=== PATIENT | female | born 1965 | race Caucasian/White ===

== ENCOUNTER 2017-09-29 10:31 | Day surgery (SDC) | END 2017-09-29 12:54 | disposition home or self-care (01) ==

== ENCOUNTER 2018-10-05 18:41 | Emergency (ER) | payer OTHER ==
[~2018-10-05] VITALS: Ht 147.3 cm; Wt 54.5 kg
[~2018-10-05 18:41] MED LIST: ALEN70TA5 PO; CALC1TAB79 PO; EMTR1TAB17 PO; HIV MEDS; SUMA50TA3 PO; TRAZ-111 PO
[2018-10-05 19:10] VITALS: Ht 147.3 cm; Wt 54.5 kg
[2018-10-05] MEDS ORDERED: morphine 4 MG/ML VIAL IV STA (20:49)
[2018-10-05] MEDS ORDERED: ONDANSETRON 4 MG INJ IV STA (20:49)
[2018-10-05] MEDS ORDERED: HYDR-3980 PO (22:59)
[2018-10-05] MEDS ORDERED: NALO4SPR NS (22:59)
--- NOTE | 2018-10-05 23:12 | ERD ---
ER Documentation Chief Complaint Chief Complaint BACK PAIN S/P SX 1 WEEK AGO HPI Patient is a 53-year-old female who presents with back pain and left leg pain. The patient had pain with sitting. The symptoms started 2 days ago. The patient had recent surgery by Dr. Vaughan on her lower back on September 22. She denies fevers. She took to [facility] [employer] recently prior to coming into the emergency department. She does have a primary doctor Dr. Condon. She has had no incontinence. ROS All systems reviewed and are negative except as per history of present illness. Medications Home Meds Active Scripts Naloxone HCl nasal spray (Narcan 4 mg/0.1 mL nasal) 4 Mg [place], 4 MG NS .Q2-3MIN for OPIOID OVERDOSE, #2 SPRAY 0 Refills [place] 0.1 mL into one nostril. Repeat with second device into other nostril after 2-3 minutes if no or minimal response Prov:MILI SUAREZ MD 10/05/18 Hydrocodone/Acetaminophen ([place] 10-325 Tablet) 1 Each Tablet, 1 TAB PO Q6H PRN for PAIN, #7 TAB Prov:MILI SUAREZ MD 10/05/18 Reported Medications Alendronate Sodium* (Fosamax*) 70 Mg Tablet, 70 MG PO EVERY THURSDAY, #4 TAB 09/22/18 Calcium Carbonate/Vitamin D3 ([place] 500+D Tablet) 1 Each Tablet, 1 EACH PO DAILY, TAB 09/22/18 Sumatriptan Succinate* (Sumatriptan Succinate*) 50 Mg Tablet, 50 MG PO BID PRN for MIGRAINE HEADACHE, TAB May repeat after 2 hours if needed; MAX 200 mg/24 hours 09/22/18 Trazodone Hcl* (Trazodone Hcl*) 50 Mg Tablet, 50 MG PO QHS, #30 TAB 09/22/18 Emtricitab/Rilpiviri/Tenof Ala (Odefsey Tablet) 1 Each Tablet, 1 EACH PO DAILY, TAB 09/22/18 [Hiv Meds] No Conflict Check 09/29/17 Allergies Allergies: Coded Allergies: No Known Allergy (Unverified , 09/29/17) PMhx/Soc History of Surgery: Yes (CSECTION, DILAN OVARIES REMOVED ) Anesthesia Reaction: No Hx Neurological Disorder: No Hx Respiratory Disorders: No Hx Cardiac Disorders: No Hx Psychiatric Problems: No Hx Miscellaneous Medical Probl: No Hx Alcohol Use: No Hx Substance Use: No Hx Tobacco Use: Yes Smoking Status: Former smoker FmHx Family History: No diabetes Physical Exam Vitals Vital Signs Date Temp Pulse Resp B/P (MAP) Pulse Ox O2 O2 Flow FiO2 Time Delivery Rate 10/05/18 98.5 86 18 107/52 98 19:10 (70) Physical Exam Const: Mild distress secondary to pain Head: Atraumatic Eyes: Normal Conjunctiva ENT: Normal External Ears, Nose and Mouth. Neck: Full range of motion. No meningismus. Resp: Clear to auscultation bilaterally Cardio: Regular rate and rhythm, no murmurs Abd: Soft, non tender, non distended. Normal bowel sounds Skin: Incision is clean, dry, and intact Back: No midline or flank tenderness Ext: No cyanosis, or edema Neur: Awake and alert, able to lift the left leg off the bed, able to lift the right leg off the bed, sensation intact bilaterally, flexion and extension at the ankle intact Psych: Normal Mood and Affect Result Diagram: 10/05/18210410/05/182104 Results 24 hrs Laboratory Tests Test 10/05/18 21:05 White Blood Count 9.5 10^3/ul Red Blood Count 3.84 10^6/ul Hemoglobin 12.7 g/dl Hematocrit 38.3 % Mean Corpuscular Volume 99.7 fl Mean Corpuscular Hemoglobin 33.1 pg Mean Corpuscular Hemoglobin Concent 33.2 g/dl Red Cell Distribution Width 11.5 % Platelet Count 413 10^3/UL Mean Platelet Volume 10.7 fl Immature Granulocytes % 0.300 % Neutrophils % 70.7 % Lymphocytes % 23.5 % Monocytes % 4.8 % Eosinophils % 0.3 % Basophils % 0.4 % Nucleated Red Blood Cells % 0.0 /100WBC Immature Granulocytes # 0.030 10^3/ul Neutrophils # 6.7 10^3/ul Lymphocytes # 2.2 10^3/ul Monocytes # 0.5 10^3/ul Eosinophils # 0.0 10^3/ul Basophils # 0.0 10^3/ul Nucleated Red Blood Cells # 0.0 10^3/ul Erythrocyte Sedimentation Rate 60 mm/Hr Prothrombin Time 13.9 Sec Prothrombin Time Ratio 1.1 INR International Normalized Ratio 1.06 Activated Partial Thromboplast Time 24.5 Sec Sodium Level 138 mmol/L Potassium Level 3.6 mmol/L Chloride Level 102 mmol/L Carbon Dioxide Level 22 mmol/L Anion Gap 14 Blood Urea Nitrogen 14 mg/dl Creatinine 0.55 mg/dl Est Glomerular Filtrat Rate mL/min > 60 mL/min Glucose Level 95 mg/dl Calcium Level 10.2 mg/dl Current Medications Medications Dose Sig/Joseph Start Time Status Last (Trade) Ordered Route PRN Stop Time Admin Dose Reason Admin Morphine 4 mg ONCE STAT 10/05/18 DC 10/05/18 Sulfate IV 20:49 21:03 (morphine) 10/05/18 20:50 Ondansetron 4 mg ONCE STAT 10/05/18 DC 10/05/18 HCl (Zofran IV 20:49 21:02 Inj) 10/05/18 20:50 Procedures/MDM X-ray LS-Spine 3V Interpreted by me: Bones: No fracture, or lytic lesions Joints: No dislocation Foreign body: Since surgery with fixation appears intact X-ray Hip 2V Interpreted by me: Bones: No fracture Joints: No dislocation Foreign body: None Patient is a 53-year-old female presents with back pain and leg pain after surgery on September 22. Patient has no fever here in the emergency department. There is no incontinence. White blood cell count was normal. There is no fever. ESR was elevated but at this point I doubt true infection such as epidural abscess. Also doubt epidural hematoma or cauda equina syndrome. The patient will be discharged but will need to follow-up with her orthopedic surgeon within 24 to 48 hours for evaluation. The patient can return for any worsening symptoms. Departure Diagnosis: Primary Impression: Post-operative pain Condition: Fair Patient Instructions: Post Op Wound Check, Pain Referrals: YU VAUGHAN MD Additional Instructions: Specialist:Usted tiene kathleen condicin mdica que requiere que rogelio a un especialista dentro de los prximos 1-2 mcmillan.POR FAVOR,CON BELTRAN SEGUIMIENTO DE PRIMARIA PHSICIAN refferal. SI USTED NO TIENE UN MDICO GENERAL Y / O USTED NO PUEDE PAGAR eugenio a un mdico,los siguientes guzman RECURSOS sido suministrado a usted. ES BELTRAN RESPONSABILIDAD PARA SER VISTOS POR EL ESPECIALISTA: MILI SUAREZ MD Oct 05, 2018 23:12
[2018-10-06 00:17] VITALS: BP 121/88; PULSE 81; RESP 18
== END 2018-10-06 00:18 | disposition home or self-care (01) ==
LOC: E/R 18:41
DX: G89.18 Other acute postprocedural pain (principal); Z87.891 Personal history of nicotine dependence
CPT/HCPCS: 36415; 72100; 73510; 80048; 85025; 85610; 85651; 85730; 96374; 96375; J2270; J2405; Z7502

== ENCOUNTER 2018-10-15 12:29 | Emergency (ER) | payer OTHER ==
[~2018-10-15] VITALS: Ht 147.3 cm; Wt 54.5 kg
[~2018-10-15 12:29] MED LIST changes: -HIV MEDS; +HYDR-3980 PO; +NALO4SPR NS
[2018-10-15 12:46] VITALS: Ht 147.3 cm; Wt 54.5 kg
[2018-10-15] MEDS ORDERED: SOD CHLORIDE 0.9% 500 ML IV STA (13:24)
--- NOTE | 2018-10-15 13:28 | ERD ---
ER Documentation Chief Complaint Chief Complaint BILATERAL LEG PAIN X2 WEEKS S/P BACK SX BY DR BULMARO ZARAGOZA This is a 53-year-old woman with a history of chronic back pain, chronic bilateral lower extremity weakness, opioid dependence presenting with continued back pain status post L5-S1 fusion 1 month ago. She has been seen and evaluated twice postop by her orthopedic surgeon for continued symptoms and outpatient imaging was ordered although she has had difficulty obtaining the CT scan so she was referred here for evaluation. Patient has had no fevers or chills, no weight loss, no new weakness in her legs, no complaints of chest pain or shortness of breath, no dysuria, no loss of bowel or bladder control. Patient was referred here by orthopedic surgeon for imaging and labs. ROS All systems reviewed and are negative except as per history of present illness. Medications Home Meds Active Scripts Ibuprofen* (Motrin*) 600 Mg Tab, 600 MG PO Q8 PRN for PAIN AND/OR INFLAMMATION, #30 TAB Prov:ORION AGARWAL MD 10/15/18 Diclofenac Sodium* (Voltaren* Gel) 1% -100 Gm Gel, 2 GM TOP QID PRN for PAIN AND/OR INFLAMMATION, #1 TUB Prov:ORION AGARWAL MD 10/15/18 Naloxone HCl nasal spray (Narcan 4 mg/0.1 mL nasal) 4 Mg [place], 4 MG NS .Q2-3MIN for OPIOID OVERDOSE, #2 SPRAY 0 Refills [place] 0.1 mL into one nostril. Repeat with second device into other nostril after 2-3 minutes if no or minimal response Prov:MILI SUAREZ MD 10/05/18 Hydrocodone/Acetaminophen ([place] 10-325 Tablet) 1 Each Tablet, 1 TAB PO Q6H PRN for PAIN, #7 TAB Prov:MILI SUAREZ MD 10/05/18 Reported Medications Alendronate Sodium* (Fosamax*) 70 Mg Tablet, 70 MG PO EVERY THURSDAY, #4 TAB 09/22/18 Calcium Carbonate/Vitamin D3 ([place] 500+D Tablet) 1 Each Tablet, 1 EACH PO DAILY, TAB 09/22/18 Sumatriptan Succinate* (Sumatriptan Succinate*) 50 Mg Tablet, 50 MG PO BID PRN for MIGRAINE HEADACHE, TAB May repeat after 2 hours if needed; MAX 200 mg/24 hours 09/22/18 Emtricitab/Rilpiviri/Tenof Ala (Odefsey Tablet) 1 Each Tablet, 1 EACH PO DAILY, TAB 09/22/18 Discontinued Reported Medications Trazodone Hcl* (Trazodone Hcl*) 50 Mg Tablet, 50 MG PO QHS, #30 TAB 09/22/18 Allergies Allergies: Coded Allergies: No Known Allergy (Unverified , 10/15/18) PMhx/Soc Chronic pain syndrome, opioid dependence, chronic bilateral lower extremity weakness, status post L5-S1 fusion History of Surgery: Yes (CSECTION, DILAN OVARIES REMOVED ) Anesthesia Reaction: No Hx Neurological Disorder: No Hx Respiratory Disorders: No Hx Cardiac Disorders: No Hx Psychiatric Problems: No Hx Miscellaneous Medical Probl: No Hx Alcohol Use: No Hx Substance Use: No Hx Tobacco Use: Yes Physical Exam Vitals Vital Signs Date Temp Pulse Resp B/P (MAP) Pulse Ox O2 O2 Flow FiO2 Time Delivery Rate 10/15/18 87 20 103/80 98 Room Air 14:00 (88) 10/15/18 85 14 112/60 99 Room Air 13:15 (77) 10/15/18 99.3 96 20 127/60 98 12:46 (82) Physical Exam Const: No acute distress, afebrile Resp: Clear to auscultation bilaterally Cardio: Regular rate and rhythm, no murmurs Abd: Soft, non tender, non distended. Normal bowel sounds Skin: No petechiae or rashes. 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 Psych: Normal Mood and Affect Result Diagram: 10/15/18 1331 10/15/18 1331 Results 24 hrs Laboratory Tests Test 10/15/18 13:31 White Blood Count 7.6 10^3/ul Red Blood Count 4.06 10^6/ul Hemoglobin 13.5 g/dl Hematocrit 40.0 % Mean Corpuscular Volume 98.5 fl Mean Corpuscular Hemoglobin 33.3 pg Mean Corpuscular Hemoglobin Concent 33.8 g/dl Red Cell Distribution Width 11.2 % Platelet Count 235 10^3/UL Mean Platelet Volume 11.1 fl Immature Granulocytes % 0.400 % Neutrophils % 71.8 % Lymphocytes % 21.0 % Monocytes % 4.9 % Eosinophils % 1.2 % Basophils % 0.7 % Nucleated Red Blood Cells % 0.0 /100WBC Immature Granulocytes # 0.030 10^3/ul Neutrophils # 5.4 10^3/ul Lymphocytes # 1.6 10^3/ul Monocytes # 0.4 10^3/ul Eosinophils # 0.1 10^3/ul Basophils # 0.1 10^3/ul Nucleated Red Blood Cells # 0.0 10^3/ul Erythrocyte Sedimentation Rate 20.0 mm/Hr Prothrombin Time 13.0 Sec Prothrombin Time Ratio 1.0 INR International Normalized Ratio 0.97 Activated Partial Thromboplast Time 25.9 Sec Sodium Level 141 mmol/L Potassium Level 3.9 mmol/L Chloride Level 104 mmol/L Carbon Dioxide Level 26 mmol/L Anion Gap 11 Blood Urea Nitrogen 10 mg/dl Creatinine 0.56 mg/dl Est Glomerular Filtrat Rate mL/min > 60 mL/min Glucose Level 142 mg/dl Calcium Level 9.7 mg/dl C-Reactive Protein 0.7 mg/dl Current Medications Medications Dose Sig/Joseph Start Time Status Last (Trade) Ordered Route PRN Stop Time Admin Dose Reason Admin Sodium 500 ml @ Q1H STAT 10/15/18 DC 10/15/18 Chloride 500 mls/hr IV 13:24 13:52 10/15/18 14:23 1 mg ONCE STAT 10/15/18 DC 10/15/18 Hydromorphone IV 15:09 15:19 HCl 10/15/18 15:10 (Dilaudid) Procedures/MDM IV line was established patient was placed on environmental monitoring technician rhythm strip revealed a sinus rhythm at about 80 bpm with upright P and T waves. Patient was afebrile I administered 500 cc normal saline IV, hydromorphone 1 mg IV x1. CBC and electrolytes were normal, coagulation profile normal, CRP was very low. CT imaging of the lumbar spine was performed and reviewed directly by her orthopedic surgeon Dr. Camargo and his physician lead recreation assistant, hardware was in place and no acute fracture or dislocation noted, no acute pathology noted. Please also review radiologist report. Patient's pain was controlled and her neurologic exam remains stable compared to preop, her orthopedic surgeon prescribed [place] for continued outpatient pain control and recommended follow-up with PMD, I also prescribed NSAID topical and oral for pain management. Differential diagnoses considered, included but not limited to acute coronary syndrome, pulmonary embolism, aortic dissection, abdominal aortic aneurysm, sepsis, spinal epidural abscess, postop infection, acute spinal cord syndromes, bowel obstruction, pyelonephritis, nephrolithiasis, cystitis, as well as metabolic, hematologic, and electrolyte abnormalities. As well as abscess, cellulitis, fractures, and dislocations. Patient feels much better at this time, and vital signs are normal, symptoms have improved. I did give strict instructions to return to the ED if symptoms continue or worsen, patient will otherwise follow-up with primary care physician. Patient understood instructions and agreed to plan. Disclaimer: Inadvertent spelling and grammatical errors are likely due to EHR/dictation software use and do not reflect on the overall quality of patient care. Also, please note that the electronic time recorded on this note does not necessarily reflect the actual time of the patient encounter. Departure Diagnosis: Primary Impression: Postoperative pain Condition: ORION Marquez MD October 15, 2018 13:28
[2018-10-15] MEDS ORDERED: HYDROmorphONE 2 MG/ML SYG IV STA (15:09)
[2018-10-15] MEDS ORDERED: IBUP-1542 PO (15:44)
[2018-10-15] MEDS ORDERED: DICL100G37 TOP (15:44)
--- NOTE | 2018-10-15 16:14 | PN ---
Date/Time of Note Date/Time of Note DATE: 10/15/18 TIME: 15:57 Subjective 24 Hr Interval Summary Seeing patient for Dr. Carlos Vaughan. Patient is status post transforaminal lumbar interbody fusion with internal fixation L5-S1 on 09/22/2018. She has been seen twice in our office post-operatively, 1 for her scheduled postoperative visit and the second time for pain control. She was last seen on 10/07/2018 due to increased left leg pain. Percocet 5/325mg number 50 tablets was prescribed to her at the end of that visit. She called our office today stating the pain medication was not helping and she was unable to walk. We had not yet received authorization from her HMO insurance for an urgent referral for a lumbar CT as well as urgent referral for pain management. She does have a history of chronic pain. Patient was advised to go to [facility] ER today for further evaluation and the staff at [facility] ER was aware. I saw the patient today in the ER. She complained of low back and left leg pain that is severe. She had lab work done which was unremarkable including a normal white blood cell count and CRP. She was afebrile. On examination lumbar incision was well-healed. She continues to have deficits in her left lower extremity, specifically weakness of the left EHL 4/5 which is unchanged since her last visit. Her CT scan reviewed with Dr. Vaughan did not show any c omplications with her hardware at L5-S1, there was no hematoma seen at the surgical site. Overall the postoperative CT shows normal postoperative findings. She states the Percocet has not been working and when she had hydrocodone 10/325mg in the past this was helpful. I will give her prescription for number 30 tablets of [place] 10/325mg. I urged her again to contact her primary care provider's office (HMO) later today or first thing Thursday morning so that she can follow-up on the urgent request for pain management referral will need ongoing treatments. We have a scheduled appointment to see her in 1 to 2 weeks and she contact me before then if she has any other complaints. Case was discussed with ER provider Dr. Mike Lim. The patient and her are agreeable to the above plan. Exam/Review of Systems Vital Signs Vitals Vital Signs Date Temp Pulse Resp B/P (MAP) Pulse Ox O2 O2 Flow FiO2 Time Delivery Rate 10/15/18 87 20 103/80 98 Room Air 14:00 (88) 10/15/18 99.3 12:46 Results Result Diagram: 10/15/18 1331 10/15/18 1331 SALVATORE VAZQUEZ October 15, 2018 16:13
[2018-10-15 16:20] VITALS: BP 106/81; PULSE 80; RESP 16
== END 2018-10-15 16:20 | disposition home or self-care (01) ==
LOC: E/R 12:29
DX: G89.18 Other acute postprocedural pain (principal); Z87.891 Personal history of nicotine dependence
CPT/HCPCS: 72131; 80048; 85025; 85610; 85651; 85730; 86140; 96374; J1170; J7040; Z7502; Z7610

== ENCOUNTER 2018-10-25 18:23 | Emergency (ER) | payer OTHER ==
[~2018-10-25] VITALS: Ht 147.3 cm; Wt 58.2 kg
[~2018-10-25 18:23] MED LIST changes: +DICL100G37 TOP; +IBUP-1542 PO; -TRAZ-111 PO
[2018-10-25 18:28] VITALS: Ht 147.3 cm; Wt 58.2 kg
--- NOTE | 2018-10-25 19:01 | ERD ---
ER Documentation Chief Complaint Chief Complaint back pain s/p back surgery 30 days ago HPI The patient is a 53-year-old female, presenting to the ER because of chronic low back pain radiating down to her right lower extremity, had similar symptom previously, denies fever, chills, neck pain, chest pain, dyspnea, abdominal pain, complains of vomiting and diarrhea, denies hematemesis/hematochezia, fecal/urinary incontinence. She used to smoke until a month ago, denies drinking, she denies any history of IV drug abuse Past medical history: HIV, insomnia, migraine, LBP Past surgical history: , back surgery about a month ago ROS All systems reviewed and are negative except as per history of present illness. Medications Home Meds Active Scripts Ibuprofen* (Motrin*) 600 Mg Tab, 600 MG PO Q6H PRN for PAIN AND OR ELEVATED TEMP, #30 TAB Prov:HILARIO ZAFAR MD 10/25/18 Loperamide Hcl* (Imodium*) 2 Mg Capsule, 2 MG PO .AFTER EA LOOSE BM PRN for DIARRHEA, #10 TAB Prov:HILARIO ZAFAR MD 10/25/18 Ondansetron (Ondansetron Odt) 4 Mg Tab.rapdis, 4 MG PO Q6H PRN for NAUSEA AND/OR VOMITING, #10 TAB Prov:HILARIO ZAFAR MD 10/25/18 Ibuprofen* (Motrin*) 600 Mg Tab, 600 MG PO Q8 PRN for PAIN AND/OR INFLAMMATION, #30 TAB Prov:ORION AGARWAL MD 10/15/18 Diclofenac Sodium* (Voltaren* Gel) 1% -100 Gm Gel, 2 GM TOP QID PRN for PAIN AND/OR INFLAMMATION, #1 TUB Prov:ORION AGARWAL MD 10/15/18 Reported Medications Alendronate Sodium* (Fosamax*) 70 Mg Tablet, 70 MG PO EVERY THURSDAY, #4 TAB 09/22/18 Calcium Carbonate/Vitamin D3 ([place] 500+D Tablet) 1 Each Tablet, 1 EACH PO DAILY, TAB 09/22/18 Sumatriptan Succinate* (Sumatriptan Succinate*) 50 Mg Tablet, 50 MG PO BID PRN for MIGRAINE HEADACHE, TAB May repeat after 2 hours if needed; MAX 200 mg/24 hours 09/22/18 Emtricitab/Rilpiviri/Tenof Ala (Odefsey Tablet) 1 Each Tablet, 1 EACH PO DAILY, TAB 09/22/18 Discontinued Scripts Naloxone HCl nasal spray (Narcan 4 mg/0.1 mL nasal) 4 Mg [place], 4 MG NS .Q2-3MIN for OPIOID OVERDOSE, #2 SPRAY 0 Refills [place] 0.1 mL into one nostril. Repeat with second device into other nostril after 2-3 minutes if no or minimal response Prov:MILI SUAREZ MD 10/05/18 Hydrocodone/Acetaminophen ([place] 10-325 Tablet) 1 Each Tablet, 1 TAB PO Q6H PRN for PAIN, #7 TAB Prov:MILI SUAREZ MD 10/05/18 Allergies Allergies: Coded Allergies: No Known Allergy (Unverified , 10/25/18) PMhx/Soc History of Surgery: Yes (CSECTION, DILAN OVARIES REMOVED ) Anesthesia Reaction: No Hx Neurological Disorder: No Hx Respiratory Disorders: No Hx Cardiac Disorders: No Hx Psychiatric Problems: No Hx Miscellaneous Medical Probl: No Hx Alcohol Use: No Hx Substance Use: No Hx Tobacco Use: Yes Physical Exam Vitals Vital Signs Date Temp Pulse Resp B/P (MAP) Pulse Ox O2 O2 Flow FiO2 Time Delivery Rate 10/25/18 93 18 122/68 98 Room Air 19:00 (86) 10/25/18 99.2 91 18 119/68 97 18:28 (85) Physical Exam Const: No acute distress. Head: Atraumatic. Eyes: Normal Conjunctiva. ENT: Normal External Ears, Nose and Mouth. Neck: Full range of motion. No meningismus. Resp: Clear to auscultation bilaterally. Cardio: Regular rate and rhythm. Abd: Soft, non distended, normal bowel sounds, non tender. Skin: No petechiae or rashes. Back: No midline or flank tenderness. Positive straight leg raising test on the left lower extremity Ext: No cyanosis, or edema. Neur: Awake and alert. No focal deficit Psych: Normal Mood and Affect. Result Diagram: 10/25/18192510/25/181925 Results 24 hrs Laboratory Tests Test 10/25/18 19:26 10/25/18 19:38 White Blood Count 8.1 10^3/ul Red Blood Count 3.89 10^6/ul Hemoglobin 12.9 g/dl Hematocrit 37.1 % Mean Corpuscular Volume 95.4 fl Mean Corpuscular Hemoglobin 33.2 pg Mean Corpuscular Hemoglobin Concent 34.8 g/dl Red Cell Distribution Width 11.2 % Platelet Count 215 10^3/UL Mean Platelet Volume 10.7 fl Immature Granulocytes % 0.500 % Neutrophils % 74.0 % Lymphocytes % 19.0 % Monocytes % 5.8 % Eosinophils % 0.5 % Basophils % 0.2 % Nucleated Red Blood Cells % 0.0 /100WBC Immature Granulocytes # 0.040 10^3/ul Neutrophils # 6.0 10^3/ul Lymphocytes # 1.5 10^3/ul Monocytes # 0.5 10^3/ul Eosinophils # 0.0 10^3/ul Basophils # 0.0 10^3/ul Nucleated Red Blood Cells # 0.0 10^3/ul Sodium Level 138 mmol/L Potassium Level 3.3 mmol/L Chloride Level 103 mmol/L Carbon Dioxide Level 22 mmol/L Anion Gap 13 Blood Urea Nitrogen 11 mg/dl Creatinine 0.49 mg/dl Est Glomerular Filtrat Rate mL/min > 60 mL/min Glucose Level 126 mg/dl Calcium Level 9.5 mg/dl Total Bilirubin 0.5 mg/dl Direct Bilirubin 0.00 mg/dl Indirect Bilirubin 0.5 mg/dl Aspartate Amino Transf (AST/SGOT) 21 IU/L Alanine Aminotransferase (ALT/SGPT) 15 IU/L Alkaline Phosphatase 77 IU/L Total Protein 7.4 g/dl Albumin 4.3 g/dl Globulin 3.10 g/dl Albumin/Globulin Ratio 1.38 Lipase 86 U/L Bedside Urine pH (LAB) 6.0 Bedside Urine Protein (LAB) 2+ Bedside Urine Glucose (UA) Negative Bedside Urine Ketones (LAB) Negative Bedside Urine Blood 3+ Bedside Urine Nitrite (LAB) Negative Bedside Urine Leukocyte Esterase (L Negative Current Medications Medications Dose Sig/Joseph Start Time Status Last (Trade) Ordered Route PRN Stop Time Admin Dose Reason Admin Ketorolac 30 mg ONCE STAT 10/25/18 DC 10/25/18 Tromethamine IV 19:09 19:32 (Toradol) 10/25/18 19:10 Ondansetron 4 mg ONCE STAT 10/25/18 DC HCl (Zofran IV 20:03 Inj) 10/25/18 20:05 Loperamide 4 mg ONCE ONCE 10/25/18 DC HCl PO 20:30 (Imodium Cap) 10/25/18 20:31 1 tab ONCE ONCE 10/25/18 DC Acetaminophen PO 20:30 / 10/25/18 20:31 Hydrocodone Bitart ([place] (10/325)) Potassium 40 meq ONCE STAT 10/25/18 DC Chloride PO 20:22 (Klor-Con 20) 10/25/18 20:24 Procedures/MDM MEDICAL MAKING DECISION: The patient is a 53-year-old female, presenting with acute low back pain with left sciatica, acute hematuria, acute hypokalemia. She was treated with Toradol 30 mg IV, [place] 10 mg for pain, Zofran 4 mg IV for nausea, Imodium 4 mg p.o. for diarrhea, potassium chloride 40 mEq p.o. for acute hypokalemia with good response, is stable for outpatient follow-up The differential diagnoses considered include but are not limited to caudal equina syndrome, spinal abscess, DJD, diskitis, lumbar radiculopathy. Departure Diagnosis: Primary Impression: Back pain with left-sided sciatica Additional Impressions: Hypokalemia Hematuria Condition: Good Comments She was discharged with Zofran ODT, Imodium, Motrin I discussed the findings with the patient. I advised the patient to follow-up with the primary physician in about 2-3 days, sooner if needed and return if any concern. Disclaimer: Inadvertent spelling and grammatical errors are likely due to EHR/dictation software use and do not reflect on the overall quality of patient care. Also, please note that the electronic time recorded on this note does not necessarily reflect the actual time of the patient encounter. HILARIO ZAFAR MD October 25, 2018 19:01
[2018-10-25] MEDS ORDERED: KETOROLAC 30 MG INJ IV STA (19:09)
[2018-10-25] MEDS ORDERED: ONDANSETRON 4 MG INJ IV STA (20:03)
[2018-10-25] MEDS ORDERED: POTASSIUM CHLORIDE (SR) 20 MEQ TAB PO STA (20:22)
[2018-10-25] MEDS ORDERED: ONDA4TAB14 PO (20:27)
[2018-10-25] MEDS ORDERED: LOPE2CAP PO (20:27)
[2018-10-25] MEDS ORDERED: IBUP-1542 PO (20:27)
[2018-10-25] MEDS ORDERED: LOPERAMIDE 2 MG CAP PO ONE (20:30)
[2018-10-25] MEDS ORDERED: HYDROCODONE/APAP (10/325) TAB PO ONE (20:30)
[2018-10-25 21:00] VITALS: BP 118/71; PULSE 89; RESP 18
== END 2018-10-25 21:16 ==
LOC: E/R 18:23
DX: M54.42 Lumbago with sciatica, left side (principal); E87.6 Hypokalemia; R31.9 Hematuria, unspecified
CPT/HCPCS: 36415; 80053; 81003; 83690; 85025; 96374; 96375; J1885; J2405; Z7502; Z7610

== ENCOUNTER 2018-11-07 18:29 | Emergency (ER) | payer OTHER ==
[~2018-11-07] VITALS: Ht 147.3 cm; Wt 52.5 kg
[~2018-11-07 18:29] MED LIST changes: -HYDR-3980 PO; +LOPE2CAP PO; -NALO4SPR NS; +ONDA4TAB14 PO
[2018-11-07 18:31] VITALS: Ht 147.3 cm; Wt 52.5 kg
[2018-11-07] MEDS ORDERED: SOD CHLORIDE 0.9% 1,000 ML IV STA (19:59)
[2018-11-07] MEDS ORDERED: morphine 4 MG/ML VIAL IV STA (19:59)
[2018-11-07] MEDS ORDERED: ONDANSETRON 4 MG INJ IV STA (19:59)
[2018-11-07] MEDS ORDERED: METHYLNALTREXONE 12 MG/0.6 ML VIAL SC SCH (20:00)
[2018-11-07] MEDS ORDERED: IOHEXOL 300MG/ML 150 ML BTL ONE (20:34)
[2018-11-07] MEDS ORDERED: SOD CHLORIDE 0.9% 100 ML ONE (20:34)
[2018-11-07] MEDS ORDERED: LIDOCAINE/MYLANTA 40 ML BTL PO STA (21:48)
[2018-11-07] MEDS ORDERED: BELLADONNA/PHENOBARBITAL TAB PO STA (21:48)
--- NOTE | 2018-11-07 21:54 | ERD ---
ER Documentation Chief Complaint Chief Complaint BLACK STOOL X'S 4 DAYS, DIZZINESS, R ABD PAIN HPI This is a 53-year-old female that underwent surgical intervention of her lumbar spine several weeks ago. She has been on oxycodone for analgesic control. She indicates that for the past several days she had a significant amount of Pepto- Bismol. She took the Pepto-Bismol for indigestion. She indicates that she had been having orange juice that would cause severe retrosternal burning pain. The pain began to radiate to the left lower quadrant. She also noticed that for the past 4 days she has been experiencing black stools. She does not drink alcohol. She has not been taking NSAIDs. She denies any hemoptysis hematemesis. She has no chest pain. She has no shortness of breath. ROS All systems reviewed and are negative except as per history of present illness. Medications Home Meds Active Scripts Ibuprofen* (Motrin*) 600 Mg Tab, 600 MG PO Q6H PRN for PAIN AND OR ELEVATED TEMP, #30 TAB Prov:HILARIO ZAFAR MD 10/25/18 Loperamide Hcl* (Imodium*) 2 Mg Capsule, 2 MG PO .AFTER EA LOOSE BM PRN for DIARRHEA, #10 TAB Prov:HILARIO ZAFAR MD 10/25/18 Ondansetron (Ondansetron Odt) 4 Mg Tab.rapdis, 4 MG PO Q6H PRN for NAUSEA AND/OR VOMITING, #10 TAB Prov:HILARIO ZAFAR MD 10/25/18 Ibuprofen* (Motrin*) 600 Mg Tab, 600 MG PO Q8 PRN for PAIN AND/OR INFLAMMATION, #30 TAB Prov:ORION AGARWAL MD 10/15/18 Diclofenac Sodium* (Voltaren* Gel) 1% -100 Gm Gel, 2 GM TOP QID PRN for PAIN AND/OR INFLAMMATION, #1 TUB Prov:ORION AGARWAL MD 10/15/18 Reported Medications Alendronate Sodium* (Fosamax*) 70 Mg Tablet, 70 MG PO EVERY THURSDAY, #4 TAB 09/22/18 Calcium Carbonate/Vitamin D3 (Oysco 500+D Tablet) 1 Each Tablet, 1 EACH PO DAILY, TAB 09/22/18 Sumatriptan Succinate* (Sumatriptan Succinate*) 50 Mg Tablet, 50 MG PO BID PRN for MIGRAINE HEADACHE, TAB May repeat after 2 hours if needed; MAX 200 mg/24 hours 09/22/18 Emtricitab/Rilpiviri/Tenof Ala (Odefsey Tablet) 1 Each Tablet, 1 EACH PO DAILY, TAB 09/22/18 Allergies Allergies: Coded Allergies: No Known Allergy (Unverified , 10/25/18) PMhx/Soc History of Surgery: Yes (CSECTION, DILAN OVARIES REMOVED ) Anesthesia Reaction: No Hx Neurological Disorder: No Hx Respiratory Disorders: No Hx Cardiac Disorders: No Hx Psychiatric Problems: No Hx Miscellaneous Medical Probl: Yes (HIV+) Hx Alcohol Use: No Hx Substance Use: No Hx Tobacco Use: Yes Smoking Status: Never smoker Physical Exam Vitals Vital Signs Date Temp Pulse Resp B/P (MAP) Pulse Ox O2 O2 Flow FiO2 Time Delivery Rate 11/07/18 97.8 74 18 112/78 97 Room Air 18:56 (89) 11/07/18 97.8 89 18 122/62 97 18:31 (82) Physical Exam Constitutional:Well-developed. Well-nourished. HEENT:Normocephalic. Atraumatic.Pupils were equal round reactive to light. Moist mucous membranes.No tonsillar exudates. Neck: No nuchal rigidity. No lymphadenopathy. No posterior cervical spine tenderness or step-offs. Respiratory: Not using accessory muscles of respiration.Lungs were clear to auscultation bilaterally. No rhonchi. No rales. No wheezing. Cardiovascular: Regular rate regular rhythm.No murmurs. No rubs were appreciated.S1, S2 normal. Distal pulses are palpable 2+ bilaterally. GI: Abdomen was soft. Left lower quadrant tenderness. Non Distended. No pulsatile abdominal masses or bruits. No rebound. No guarding. Bowel sounds were present and normal. Rectal: No hemorrhoids. No gross blood per rectum. Fecal occult blood test ne gative Muscle skeletal: Full range of motion of both the upper and lower extremities bilaterally.Normal muscle tone.No assymetrical calf tenderness or swelling. Skin: No petechia, no purpura. No lesions on the palms or the soles of the feet. No maculopapular rash. NEURO: Patient was alert, awake, orientated x3.No facial droop. Gait observed and normal with no ataxia.Speech had regular rate and rhythm. No focal neurological deficits. Result Diagram: 11/07/18190511/07/181905 Results 24 hrs Laboratory Tests Test 11/07/18 19:06 White Blood Count 5.1 10^3/ul Red Blood Count 3.85 10^6/ul Hemoglobin 12.5 g/dl Hematocrit 37.9 % Mean Corpuscular Volume 98.4 fl Mean Corpuscular Hemoglobin 32.5 pg Mean Corpuscular Hemoglobin Concent 33.0 g/dl Red Cell Distribution Width 11.6 % Platelet Count 232 10^3/UL Mean Platelet Volume 11.3 fl Immature Granulocytes % 0.400 % Neutrophils % 47.1 % Lymphocytes % 41.4 % Monocytes % 8.3 % Eosinophils % 2.2 % Basophils % 0.6 % Nucleated Red Blood Cells % 0.0 /100WBC Immature Granulocytes # 0.020 10^3/ul Neutrophils # 2.4 10^3/ul Lymphocytes # 2.1 10^3/ul Monocytes # 0.4 10^3/ul Eosinophils # 0.1 10^3/ul Basophils # 0.0 10^3/ul Nucleated Red Blood Cells # 0.0 10^3/ul Prothrombin Time 13.3 Sec Prothrombin Time Ratio 1.0 INR International Normalized Ratio 1.00 Activated Partial Thromboplast Time 25.8 Sec Sodium Level 140 mmol/L Potassium Level 3.8 mmol/L Chloride Level 105 mmol/L Carbon Dioxide Level 27 mmol/L Anion Gap 8 Blood Urea Nitrogen 13 mg/dl Creatinine 0.50 mg/dl Est Glomerular Filtrat Rate mL/min > 60 mL/min Glucose Level 118 mg/dl Calcium Level 8.8 mg/dl Total Bilirubin 0.4 mg/dl Direct Bilirubin 0.00 mg/dl Indirect Bilirubin 0.4 mg/dl Aspartate Amino Transf (AST/SGOT) 24 IU/L Alanine Aminotransferase (ALT/SGPT) 22 IU/L Alkaline Phosphatase 75 IU/L Troponin I < 0.012 ng/ml Total Protein 7.3 g/dl Albumin 4.1 g/dl Globulin 3.20 g/dl Albumin/Globulin Ratio 1.28 Amylase Level 78 U/L Lipase 37 U/L Current Medications Medications Dose Sig/Joseph Start Time Status Last (Trade) Ordered Route PRN Stop Time Admin Dose Reason Admin Sodium 1,000 ml @ Q1H STAT 11/07/18 DC 11/07/18 Chloride 1,000 mls/hr IV 19:59 11/07/18 20:06 20:58 Morphine 4 mg ONCE STAT 11/07/18 DC 11/07/18 Sulfate IV 19:59 11/07/18 20:06 (morphine) 20:02 Ondansetron 4 mg ONCE STAT 11/07/18 DC 11/07/18 HCl (Zofran IV 19:59 11/07/18 20:07 Inj) 20:02 12 mg DAILY SC 11/07/18 11/07/18 Methylnaltrex 20:00 20:36 one [place] (Relistor) IV Flush 10 ml STK-MED 11/07/18 DC (NS 10 ml) ONCE .ROUTE 20:34 11/07/18 20:35 Sodium 100 ml @ ud STK-MED 11/07/18 DC Chloride ONCE .ROUTE 20:34 11/07/18 20:35 Iohexol 150 ml STK-MED 11/07/18 DC (Omnipaque ONCE .ROUTE 20:34 11/07/18 300mg/ ml) 20:35 Procedures/MDM This is a 53-year-old female presented to the emergency department with melanotic stools. The patient had been consuming Pepto-Bismol and also had been experiencing constipation thought to be secondary to opiate induced constipation she is on oxycodone postoperatively. I obtained a fecal occult blood testing performed at bedside by myself. Fecal occult blood test was negative. I did feel the black stools was more result of Pepto-Bismol versus gastrointestinal bleeding. Given that the patient had also been complaining of retrosternal burn ing pain I do feel is necessary to rule out for an atypical myocardial infarction. 12 Lead EKG tracing ordered and reviewed by myself showed: Normal sinus rhythm of 71 bpm and no arrhythmia. NM interval normal. QRS duration normal. No ST segment elevation No ST segment depression. No changes consistent with acute ischemia. The patient was not anemic. There is no electrolyte abnormalities. The patient's troponin was normal. Given that she had localized tenderness to the left lower quadrant I do feel is necessary to obtain a CT scan of the abdomen and also that the patient was postoperative for recent back surger a CT scan was obtained. This was reviewed by myself the radiologist and indicated the followin. Small 2 x 2 mm calcification in the posterior urinary bladder possibly a urinary tract calculus without evidence of hydroureteronephrosis or additional urinary tract calculi 2. Mild constipation pattern with some diverticular disease of the colon but no evidence of diverticulitis or appendicitis. 3. Linear subsegmental atelectasis or scarring within the lung bases dilan aterally. 4. Mild atherosclerotic calcification of the abdominal aorta. 5. Postoperative changes, laminectomy, interbody graft and transpedicular screw fusion at L5-S1. The patient was given Relistor for opiate-induced constipation. The patient was given a GI cocktail as I did feel she was also experiencing retrosternal burning pain from possible peptic ulcer disease. Indicates she benefit from an outpatient upper endoscopy and colonoscopy. The patient felt comfortable being discharged home. Her was at bedside. The patient was discharged home in fair condition. They were instructed to return to the emergency department at any time if there was any worsening of their condition. The patient stated they would follow up with their PCP in the next 24-48 hours to initiate a suitable medication regimen under the care of their PCP as well as to allow their PCP to monitor any drug reactions. The patient was discharged home with prescriptions after they gave informed consent to the new medication. They were also fully informed by myself on the adverse effects and adverse drug interactions in order to provide adequate safeguards to prevent possible adverse reactions to medica tions. Departure Diagnosis: Primary Impression: Postoperative pain after spinal surgery Additional Impression: Constipation Constipation type: drug induced constipation Qualified Codes: K59.03 - Drug induced constipation Condition: Fair JASON GRAVES MD Nov 07, 2018 21:54
[2018-11-07] MEDS ORDERED: OMEP40CA6 PO (21:55)
[2018-11-07 22:21] VITALS: BP 111/59; PULSE 87; RESP 12
== END 2018-11-07 22:21 | disposition home or self-care (01) ==
LOC: E/R 18:29
DX: G89.18 Other acute postprocedural pain (principal); K59.03 Drug induced constipation; R10.9 Unspecified abdominal pain; Z21 Asymptomatic human immunodeficiency virus [HIV] infection status; Z87.891 Personal history of nicotine dependence
CPT/HCPCS: 36415; 74177; 80053; 82150; 83690; 84484; 85025; 85610; 85730; 86850; 86900; 86901; 93005; 96372; 96374; 96375; J2270; J2405; J7030; Q9967; Z7502; Z7610